=== PATIENT | female | born 1940 | race Caucasian/White ===

== ENCOUNTER 2022-01-03 12:17 | Outpatient (CLI) | payer MEDICARE, OTHER | END 2022-01-03 12:18 | disposition home or self-care (01) | LOC: CSHRAD 12:17 | PROVIDERS: ATTEND Specialist | DX: I27.22 Pulmonary hypertension due to left heart disease (principal); K44.9 Diaphragmatic hernia without obstruction or gangrene | CPT/HCPCS: 71046 ==

== ENCOUNTER 2022-01-08 11:14 | Outpatient (CLI) | payer MEDICARE, OTHER | END 2022-01-08 11:15 | disposition home or self-care (01) | LOC: CSHLAB 11:14 | PROVIDERS: ATTEND Specialist | DX: Z20.822 Contact with and (suspected) exposure to COVID-19 (principal) | CPT/HCPCS: U0003; U0005 ==

== ENCOUNTER 2022-01-13 12:15 | Outpatient (CLI) | payer MEDICARE, OTHER | END 2022-01-13 12:16 | disposition home or self-care (01) | LOC: CSHCP 12:15 | PROVIDERS: ATTEND Specialist | DX: I27.22 Pulmonary hypertension due to left heart disease (principal); J98.4 Other disorders of lung | CPT/HCPCS: 94010; 94726; 94729; 94760 ==

== ENCOUNTER 2022-03-13 12:52 | Outpatient (CLI) | payer MEDICARE | END 2022-03-13 12:53 | disposition home or self-care (01) | LOC: CSHRAD 12:52 | PROVIDERS: ATTEND Internal Medicine Rheumatology | DX: M17.0 Bilateral primary osteoarthritis of knee (principal); M11.262 Other chondrocalcinosis, left knee; M11.261 Other chondrocalcinosis, right knee | CPT/HCPCS: 73565 ==

== ENCOUNTER 2022-03-13 14:34 | Outpatient (CLI) | payer MEDICARE | END 2022-03-13 14:35 | disposition home or self-care (01) | LOC: CSHMAMMO 14:34 | PROVIDERS: ATTEND Internal Medicine Rheumatology | DX: M81.0 Age-related osteoporosis without current pathological fracture (principal); M85.89 Other specified disorders of bone density and structure, multiple sites; M17.0 Bilateral primary osteoarthritis of knee; M11.262 Other chondrocalcinosis, left knee; M11.261 Other chondrocalcinosis, right knee | CPT/HCPCS: 73565; 77080 ==

== ENCOUNTER 2022-04-23 13:40 | Outpatient (CLI) | payer MEDICARE | END 2022-04-23 13:41 | disposition home or self-care (01) | LOC: CSHRAD 13:40 | PROVIDERS: ATTEND Internal Medicine Rheumatology | DX: M54.50 Low back pain, unspecified (principal); M81.0 Age-related osteoporosis without current pathological fracture; S32.010A Wedge compression fracture of first lumbar vertebra, initial encounter for closed fracture; M47.816 Spondylosis without myelopathy or radiculopathy, lumbar region | CPT/HCPCS: 72072; 72100 ==

== ENCOUNTER 2022-06-10 16:20 | Outpatient (CLI) | payer MEDICARE | END 2022-06-10 16:21 | disposition home or self-care (01) | LOC: CSHRAD 16:20 | PROVIDERS: ATTEND Neurological Surgery | DX: M48.56XA Collapsed vertebra, not elsewhere classified, lumbar region, initial encounter for fracture (principal) | CPT/HCPCS: 72100 ==

== ENCOUNTER 2023-03-09 11:38 | Observation (INO) | payer MEDICARE ==
[2023-03-09] MEDS ORDERED: Aspirin Chewable 81 MG TAB ONE (12:32)
[2023-03-09 12:35] LABS: #Basophils 0.1 10x3/uL (0.0-0.2); #Eosinphils 0.1 10x3/uL (0.0-0.5); #Monocytes 1.3 10x3/uL (0.0-1.1); #Neutrophils 4.6 10x3/uL (1.5-8.4); %Basophils 1.4 % (0.0-2.0); %Eosinophils 1.5 % (0.0-6.0); %Lymphocytes 24.5 % (18.0-47.0); %Monocytes 15.7 % (0.0-10.0); %Neutrophils 56.7 % (40.0-75.0); Hematocrit 48.8 % (34.9-44.5); Hemoglobin 15.6 g/dL (12.0-15.5); Mean Corpuscular Hemoglobin 28.9 pg (27.0-33.0); Mean Corpuscular Volume 90.5 fl (81.6-98.3); Mean Platelet Volume 9.8 fl (7.4-10.4); Platelet Count 216 10x3/uL (150-450); RBC Distribution Width 13.6 % (11.5-14.5); Red Blood Cell (RBC) Count 5.39 10x6/uL (3.90-5.03); White Blood Cell (WBC) Count 8.1 10x3/uL (3.5-10.5)
[2023-03-09 12:42] LABS: ALT (SGPT) 15 U/L (8-55); AST (SGOT) 18 U/L (5-34); Albumin 4.4 g/dL (3.4-4.8); Alkaline Phosphatase 43 U/L (40-110); Anion Gap 15 mmol/L (10-20); BUN (Urea Nitrogen) 22 mg/dL (9.8-20.1); Bilirubin, Total 0.4 mg/dL (0.2-1.2); Calc. Creatinine Clearance 0 mL/min (70-130); Carbon Dioxide 29 mmol/L (23-31); Chloride 102 mmol/L (98-107); Estimated GFR 66; Globulin 2.6 g/dL (2.4-3.5); Glucose 84 mg/dL (83-110); Lipase 19 U/L (8-78); Potassium 4.4 mmol/L (3.5-5.1); Sodium 142 mmol/L (136-145)
[2023-03-09 15:33] LABS: Troponin I Less than 0.010 ng/mL (< 0.028)
[2023-03-09] MEDS ORDERED: Nitroglycerin 0.4 MG TAB (25 Tab Bottle) SL PRN (16:35)
[2023-03-09 19:12] VITALS: BMI 20.6
[2023-03-10 04:50] LABS: #Basophils 0.1 10x3/uL (0.0-0.2); #Eosinphils 0.2 10x3/uL (0.0-0.5); #Monocytes 1.2 10x3/uL (0.0-1.1); #Neutrophils 4.3 10x3/uL (1.5-8.4); %Basophils 1.2 % (0.0-2.0); %Eosinophils 2.1 % (0.0-6.0); %Lymphocytes 28.3 % (18.0-47.0); %Neutrophils 53.2 % (40.0-75.0); Hematocrit 47.5 % (34.9-44.5); Hemoglobin 15.3 g/dL (12.0-15.5); Mean Corpuscular HGB CONC 32.2 g/dL (32.0-36.0); Mean Corpuscular Hemoglobin 29.1 pg (27.0-33.0); Mean Corpuscular Volume 90.5 fl (81.6-98.3); Mean Platelet Volume 9.8 fl (7.4-10.4); Platelet Count 178 10x3/uL (150-450); RBC Distribution Width 13.7 % (11.5-14.5); Red Blood Cell (RBC) Count 5.25 10x6/uL (3.90-5.03); White Blood Cell (WBC) Count 8.1 10x3/uL (3.5-10.5)
[2023-03-10 05:03] LABS: Anion Gap 14 mmol/L (10-20); BUN (Urea Nitrogen) 19 mg/dL (9.8-20.1); Calc. Creatinine Clearance 43 mL/min (70-130); Calcium 8.9 mg/dL (7.8-10.44); Carbon Dioxide 27 mmol/L (23-31); Chloride 105 mmol/L (98-107); Estimated GFR 72; Glucose 82 mg/dL (83-110); Magnesium 2.2 mg/dL (1.6-2.6); Sodium 142 mmol/L (136-145)
[2023-03-10 05:36] LABS: Cardiac Risk 4.4 (Less than 4.5); Cholesterol 231 mg/dl (< 200 Desired); HDL Cholesterol 53 mg/dL (>60 Neg Risk); LDL Cholesterol, Calculated 159 mg/dL; Triglycerides 97 mg/dL (Less than 150)
[2023-03-10] MEDS ORDERED: Aspirin Chewable 81 MG TAB PO SCH (09:00)
[2023-03-10] MEDS ORDERED: Empagliflozin 10 MG TAB PO SCH (09:00)
[2023-03-10 14:11] VITALS: BP 125/60; TEMP 98
== END 2023-03-10 12:50 | disposition home or self-care (01) ==
LOC: CSHERS 11:38 → CSHERHOLD 16:07 → INTOOBSV 16:07 → CSHTELE 22:10
PROVIDERS: ADMIT Hospitalist; ATTEND Hospitalist
DX: R07.9 Chest pain, unspecified (principal); I27.22 Pulmonary hypertension due to left heart disease; I50.32 Chronic diastolic (congestive) heart failure; E11.9 Type 2 diabetes mellitus without complications; E78.5 Hyperlipidemia, unspecified; Z79.82 Long term (current) use of aspirin; Z79.899 Other long term (current) drug therapy; Z86.73 Personal history of transient ischemic attack (TIA), and cerebral infarction without residual deficits; Z90.710 Acquired absence of both cervix and uterus; Z85.3 Personal history of malignant neoplasm of breast
CPT/HCPCS: 71045; 71275; 74174; 80048; 80053; 80061; 83690; 83735; 84484 ×2; 85025 ×2; 85379; 93005; 94760 ×2; 94762; 96372; 99285; G0378 ×3; 36415; J1650

== ENCOUNTER 2023-05-14 13:57 | Outpatient (CLI) | payer MEDICARE | END 2023-05-14 13:58 | disposition home or self-care (01) | LOC: CSHMRI 13:57 | PROVIDERS: ATTEND Student in an Organized Health Care Education/Training Program | DX: R41.3 Other amnesia (principal); I67.9 Cerebrovascular disease, unspecified; G31.9 Degenerative disease of nervous system, unspecified; Z86.73 Personal history of transient ischemic attack (TIA), and cerebral infarction without residual deficits | CPT/HCPCS: 70553 ==

== ENCOUNTER 2023-10-06 09:00 | Emergency (ER) | payer MEDICARE ==
[2023-10-06 09:39] LABS: #Basophils 0.1 10x3/uL (0.0-0.2); #Eosinphils 0.1 10x3/uL (0.0-0.5); #Monocytes 1.3 10x3/uL (0.0-1.1); #Neutrophils 3.4 10x3/uL (1.5-8.4); %Basophils 1.4 % (0.0-2.0); %Eosinophils 1.7 % (0.0-6.0); %Lymphocytes 30.7 % (18.0-47.0); %Monocytes 17.8 % (0.0-10.0); %Neutrophils 48.1 % (40.0-75.0); Hematocrit 49.7 % (34.9-44.5); Hemoglobin 15.9 g/dL (12.0-15.5); Mean Corpuscular Hemoglobin 29.8 pg (27.0-33.0); Mean Corpuscular Volume 93.1 fl (81.6-98.3); Mean Platelet Volume 9.5 fl (7.4-10.4); Platelet Count 181 10x3/uL (150-450); RBC Distribution Width 13.8 % (11.5-14.5); Red Blood Cell (RBC) Count 5.34 10x6/uL (3.90-5.03)
[2023-10-06 09:55] LABS: ALT (SGPT) 22 U/L (8-55); AST (SGOT) 24 U/L (5-34); Albumin 4.5 g/dL (3.4-4.8); Alkaline Phosphatase 42 U/L (40-110); Anion Gap 14 mmol/L (10-20); BUN (Urea Nitrogen) 27 mg/dL (9.8-20.1); Bilirubin, Total 0.5 mg/dL (0.2-1.2); Calc. Creatinine Clearance 0 mL/min (70-130); Calcium 9.7 mg/dL (7.8-10.44); Carbon Dioxide 27 mmol/L (23-31); Chloride 106 mmol/L (98-107); Estimated GFR 66; Globulin 2.4 g/dL (2.4-3.5); Glucose 94 mg/dL (83-110); Protein, Total 6.9 g/dL (5.8-8.1); Sodium 142 mmol/L (136-145)
[2023-10-06 09:59] LABS: Troponin I 0.013 ng/mL (< 0.028)
== END 2023-10-06 10:28 | disposition home or self-care (01) ==
LOC: CSHERS 09:00
DX: R03.0 Elevated blood-pressure reading, without diagnosis of hypertension (principal)
CPT/HCPCS: 71045; 80053; 84484; 85025; 93005

== ENCOUNTER 2024-04-28 13:06 | Outpatient (CLI) | payer MEDICARE | END 2024-04-28 13:07 | disposition home or self-care (01) | LOC: CSHULT 13:06 | PROVIDERS: ATTEND Psychiatry & Neurology Neurology | DX: G46.7 Other lacunar syndromes (principal) | CPT/HCPCS: 93880 ==